=== PATIENT | male | born 1960 | race Caucasian/White ===

== ENCOUNTER 2017-05-22 15:54 | Emergency (ER) | payer OTHER ==
[2017-05-22] MEDS ORDERED: Ketorolac 30 MG/ML SDV IVPUSH ONE (16:21)
[2017-05-22] MEDS ORDERED: Sodium Chloride 0.9% 1,000 ML IV ONE ×2 (16:29→18:02)
[2017-05-22] MEDS ORDERED: Tamsulosin 0.4 MG Cap.ER PO ONE (16:29)
[2017-05-22] MEDS ORDERED: Ondansetron 4 MG/2 ML SDV IVPUSH ONE (16:30)
[2017-05-22] MEDS: Sodium Chloride 0.9% 10 ML Syringe FLUSH PRN ×2 (16:35→16:39)
[2017-05-22 16:43] LABS: CHLORIDE,CL 107 mmol/L (98-107); SODIUM,NA 141 mmol/L (136-145)
--- NOTE | 2017-05-22 18:10 | EDM.PDOC ---
ED HPI GENERAL MEDICAL PROBLEM - General Chief Complaint: Flank Pain Stated Complaint: left flank pain Time Seen by Provider: 05/22/17 16:10 Source of Information: Reports: Patient History Limitations: Reports: No Limitations - History of Present Illness INITIAL COMMENTS - FREE TEXT/NARRATIVE: Left sided flank/lateral abdominal pain that started this afternoon. No history of same. Denies history of kidney stones. Past medical history significant for polycythemia vera (had therapeutic phlebotomy this morning), dyslipidemia, and HTN. Had one episode of dry heaves when pain became more severe. [place] hot/sweaty at that time. No bowel changes. Pain comes and goes, crampy. Nothing specifically makes it better or worse. Feels like he needs to urinate but can't. No other complaints. left flank Pain Score (Numeric/FACES): 6 - Related Data Allergies Allergy/AdvReac Type Severity Reaction Status Date / Time No Known Allergies Allergy Verified 05/22/17 15:59 Home Meds: Home Meds . [Unable to Verify Home Med List] 05/22/17 [History] Past Medical History Cardiovascular History: Reports: High Cholesterol, Hypertension Hematologic History: Reports: Polycythemia Social & Family History - Family History Family Medical History: Noncontributory (for today's complaint other than + for kidney stones) - Tobacco Use Smoking Status *Q: Never Smoker Second Hand Smoke Exposure: No - Caffeine Use Caffeine Use: Reports: Coffee, Soda, Tea - Recreational Drug Use Recreational Drug Use: No ED ROS GENERAL - Review of Systems Review Of Systems: See Below Constitutional: Reports: No Symptoms HEENT: Reports: No Symptoms Respiratory: Reports: No Symptoms Cardiovascular: Reports: No Symptoms GI/Abdominal: Reports: Abdominal Pain, Nausea, Vomiting. Denies: Black Stool, Bloody Stool, Constipation, Diarrhea, Distension : Reports: Flank Pain, Other (feels like he needs to urinate but can't). Denies: Hematuria Musculoskeletal: Reports: No Symptoms Skin: Reports: No Symptoms Neurological: Reports: No Symptoms Psychiatric: Reports: No Symptoms ED EXAM, GI/ABD - Physical Exam Exam: See Below Exam Limited By: No Limitations General Appearance: Alert, WD/WN, Anxious, Mild Distress Eyes: Bilateral: Normal Appearance, EOMI Ears: Normal External Exam Nose: Normal Inspection Throat/Mouth: Normal Inspection, Normal Voice, No Airway Compromise Head: Atraumatic, Normocephalic Neck: Normal Inspection, Supple, Non-Tender, Full Range of Motion Respiratory/Chest: No Respiratory Distress, Lungs Clear, Normal Breath Sounds, No Accessory Muscle Use, Chest Non-Tender Cardiovascular: Normal Peripheral Pulses, Regular Rate, Rhythm, No Edema, No Murmur GI/Abdominal Exam: Normal Bowel Sounds, Soft, Other (tender left mid abdomen) (Male) Exam: Deferred Rectal (Males) Exam: Deferred Back Exam: CVA Tenderness (L) (mild). No: CVA Tenderness (R), Muscle Spasm, Paraspinal Tenderness, Vertebral Tenderness Extremities: Normal Inspection, Normal Range of Motion, Non-Tender, No Pedal Edema, Normal Capillary Refill Neurological: Alert, Oriented, Normal Cognition, Normal Gait, No Motor/Sensory Deficits Psychiatric: Normal Affect, Normal Mood Skin Exam: Warm, Dry, Intact, Normal Color Course - Vital Signs Last Recorded V/S: Last Vital Signs Temp 36.4 C 05/22/17 15:55 Pulse 75 05/22/17 15:55 Resp 20 05/22/17 15:55 BP 125/84 05/22/17 15:55 Pulse Ox 98 05/22/17 15:55 - Orders/Labs/Meds Orders: Active Orders 24 hr Category Date Time Status Abdomen Pelvis wo Cont [CT] Stat Exams 05/22/17 16:21 Taken CULTURE URINE [RM] Stat Lab 05/22/17 16:05 Received Sodium Chloride 0.9% [Saline Flush] Med 05/22/17 16:21 Active 10 ml FLUSH ASDIRECTED PRN Saline Lock Insert [OM.PC] Stat Oth 05/22/17 16:21 Ordered Medication Orders Sodium Chloride (Saline Flush) 10 ml FLUSH ASDIRECTED PRN PRN Reason: Keep Vein Open Last Admin: 05/22/17 16:39 Dose: 10 ml Admin: 05/22/17 16:35 Dose: 10 ml Labs: Laboratory Tests 05/22/17 05/22/17 05/22/17 Range/Units 16:05 16:25 16:25 WBC 10.3 H (4.0-10.2) K/uL RBC 4.62 (4.33-5.41) M/uL Hgb 15.0 D (13.1-16.8) g/dL Hct 43.9 (39.0-49.0) % MCV 95.0 (84.0-98.0) fL MCH 32.5 (28.2-33.3) pg MCHC 34.2 (31.7-36.0) g/dL RDW 13.4 (11.2-14.1) % Plt Count 203 (150-350) K/uL Neut % (Auto) 70.0 (45.0-80.0) % Lymph % (Auto) 19.4 (10.0-50.0) % Gordon % (Auto) 9.6 (2.0-14.0) % Eos % (Auto) 0.6 (0.0-5.0) % Baso % (Auto) 0.4 (0.0-2.0) % Neut # (Auto) 7.19 H (1.40-7.00) K/uL Lymph # (Auto) 1.99 (0.50-3.50) K/uL Gordon # (Auto) 0.98 (0.00-1.00) K/uL Eos # (Auto) 0.06 (0.00-0.50) K/uL Baso # (Auto) 0.04 (0.00-0.20) K/uL Sodium 141 (136-145) mmol/L Potassium 4.2 (3.5-5.1) mmol/L Chloride 107 (98-107) mmol/L Carbon Dioxide 25.2 (21.0-32.0) mmol/L BUN 15 (7-18) mg/dL Creatinine 1.02 (0.51-1.17) mg/dL Est Cr Clr Drug Dosing 86.13 mL/min Estimated GFR (MDRD) > 60 mL/min Glucose 131 H (74-106) mg/dL Calcium 9.3 (8.5-10.1) mg/dL Total Bilirubin 0.6 (0.2-1.0) mg/dL AST 24 (15-37) U/L ALT 32 (12-78) U/L Alkaline Phosphatase 85 (46-116) IU/L Total Protein 6.8 (6.4-8.2) g/dL Albumin 3.6 (3.4-5.0) g/dL Specimen Type Urinvoid Urine Color Khadijah Urine Appearance Clear Urine pH 6.0 (5.0-9.0) Ur Specific [place] >= 1.030 (1.005-1.030) Urine Protein 30 H (NEGATIVE) mg/dL Urine Glucose (UA) Negative (NEGATIVE) mg/dL Urine Ketones Negative (NEGATIVE) mg/dL Urine Occult Blood Large H (NEGATIVE) Urine Nitrite Negative (NEGATIVE) Urine Bilirubin Negative (NEGATIVE) Urine Urobilinogen 0.2 (0.2-1.0) E.U./dL Ur Leukocyte Esterase Negative (NEGATIVE) Urine RBC 5-10 H /HPF Urine WBC Not seen /HPF Ur Epithelial Cells Few /LPF Urine Bacteria Few (NONE TO FEW) /HPF Meds: Medications Generic Name Dose Route Start Last Admin Trade Name Freq PRN Reason Stop Dose Admin Sodium Chloride 10 ml 05/22/17 16:21 05/22/17 16:39 Saline Flush FLUSH 10 ml ASDIRECTED PRN Administration Keep Vein Open Discontinued Medications Generic Name Dose Route Start Last Admin Trade Name Freq PRN Reason Stop Dose Admin Sodium Chloride 1,000 mls @ 999 mls/hr 05/22/17 16:29 05/22/17 16:36 Normal Saline IV 05/22/17 17:29 999 mls/hr .BOLUS ONE Administration Sodium Chloride 1,000 mls @ 999 mls/hr 05/22/17 18:02 05/22/17 18:04 Normal Saline IV 05/22/17 19:02 999 mls/hr .BOLUS ONE Administration Ketorolac Tromethamine 30 mg 05/22/17 16:21 05/22/17 16:28 Toradol IVPUSH 05/22/17 16:22 30 mg ONETIME ONE Administration Ondansetron HCl 4 mg 05/22/17 16:30 05/22/17 16:32 Zofran IVPUSH 05/22/17 16:31 4 mg ONETIME ONE Administration Tamsulosin HCl 0.4 mg 05/22/17 16:29 05/22/17 16:36 Flomax PO 05/22/17 16:30 0.4 mg ONETIME ONE Administration - Re-Assessments/Exams Free Text/Narrative Re-Assessment/Exam: 05/22/17 18:10 CT of abdomen ordered. IV fluid bolus given. Toradol, Zofran, Flomax given. Pain improved. Free Text/Narrative Re-Assessment/Exam: 05/22/17 19:02 Currently pain-free. Radiology read telephoned at [id number]. Some stones noted up within both kidneys. Mild hydro on left. It appears that patient has passed stone into bladder. Plan at this time is to send patient home. He will strain urine and attempt to save stone and bring it to his physician for analysis. One bottle of take home Toradol given to patient for PRN use. He is to return to the ER if he has sudden worsening problems. Otherwise he is to follow up with his own provider. Departure - Departure Time of Disposition: 19:04 Disposition: Home, Self-Care 01 Condition: Good Clinical Impression: Ureteric colic, Kidney stone on left side - Discharge Information Instructions: Kidney Stones, [id number] Forms: ED Department Discharge, ED Return to Work/School Form Additional Instructions: Home, rest, drink plenty of water to help flush stone through. Strain urine and attempt to get stone. Bring it to your clinic so that it can be sent for analysis and review official Radiology report from today. Follow up as needed otherwise if pain/problems return. - My Orders Last 24 Hours: My Active Orders 05/22/17 16:05 CULTURE URINE [RM] Stat 05/22/17 16:21 Abdomen Pelvis wo Cont [CT] Stat Sodium Chloride 0.9% [Saline Flush] 10 ml FLUSH ASDIRECTED PRN Saline Lock Insert [OM.PC] Stat - Assessment/Plan Last 24 Hours: My Active Orders 05/22/17 16:05 CULTURE URINE [RM] Stat 05/22/17 16:21 Abdomen Pelvis wo Cont [CT] Stat Sodium Chloride 0.9% [Saline Flush] 10 ml FLUSH ASDIRECTED PRN Saline Lock Insert [OM.PC] Stat
== END 2017-05-22 19:15 | disposition home or self-care (01) ==
LOC: LL.ED 15:54
DX: N13.2 Hydronephrosis with renal and ureteral calculous obstruction (principal); I10 Essential (primary) hypertension; D45 Polycythemia vera
CPT/HCPCS: 36415; 74176; 80053; 81001; 85025; 87086; 96361; 96374; 96375; 99195; 99284; A9270; J1885; J2405; J7030; J7050

== ENCOUNTER → 2022-04-09 | Emergency (ER) | payer OTHER ==
[2022-04-27 13:09] LABS: ANION GAP 10.9 meq/L (7-15); CHLORIDE,CL 105 mmol/L (98-107); ESTIMATED GFR 77 mL/min (>=60); SODIUM,NA 138 mmol/L (136-145)
== END ==
LOC: LL.ED 17:49
DX: R07.89 Other chest pain (principal)
CPT/HCPCS: 36415; 71046; 80053; 83605; 83735; 83880; 84484; 85025; 93005; 99284